=== PATIENT | male | born 1965 | race Two or more races ===

== ENCOUNTER 2018-02-04 00:38 | Emergency (ER) | payer OTHER ==
[~2018-02-04] VITALS: Ht 170.2 cm; Wt 93.0 kg
[2018-02-04] MEDS ORDERED: cefTRIAXone SOD 1,000 MG VL IM ONE (06:00)
[2018-02-04] MEDS ORDERED: IPRATROPIUM BROM 0.5 MG/2.5ML INH SOL NEB ONE (06:00)
[2018-02-04] MEDS ORDERED: methylPREDNISolone SOD SUCC 125 MG/2 ML VL IM ONE (06:00)
[2018-02-04] MEDS ORDERED: ALBUTEROL SULF 2.5 MG/0.5ML(0.5%) NEB SOLN NEB ONE (06:00)
[2018-02-04 06:32] VITALS: BP 141/96
== END 2018-02-04 06:29 ==
LOC: EEVIPCON 00:38 → ER 00:38
DX: J40 Bronchitis, not specified as acute or chronic (principal)
CPT/HCPCS: 71046; 94640; 96372; 99284; J0696; J2930; J7611; J7644

== ENCOUNTER 2018-02-25 16:49 | Inpatient (IN) | payer OTHER ==
[~2018-02-25] VITALS: Ht 170.2 cm; Wt 71.9 kg
[2018-02-25] MEDS ORDERED: ACETAMINOPHEN 325 MG TAB PO ONE (18:00)
[2018-02-25] MEDS ORDERED: ATEN-60 PO (18:36)
[2018-02-25] MEDS ORDERED: HCTZ25T GT (18:36)
[2018-02-25] MEDS ORDERED: DIVA500T4 PO (18:36)
[2018-02-25] MEDS ORDERED: ASPI-231 PO (18:36)
[2018-02-25] MEDS ORDERED: IBUP800T24 PO (18:36)
[2018-02-25] MEDS ORDERED: OMEP20TA PO (18:36)
[2018-02-25] MEDS ORDERED: MIRT30TA PO (18:36)
[2018-02-25] MEDS ORDERED: ATOR20TA PO (18:36)
[2018-02-25] MEDS ORDERED: LEVO88TA4 PO (18:36)
[2018-02-25] MEDS ORDERED: LISI-646 PO (18:36)
[2018-02-25] MEDS ORDERED: METF-370 PO (18:36)
[2018-02-25] MEDS ORDERED: DULO60CA PO (18:36)
[2018-02-25] MEDS ORDERED: ALBUAER3 IN (18:36)
[2018-02-25 18:39] LABS: Basophils # (auto) 0 uL; Basophils % (auto) 0.6 % (0.0-2.0); Eosinophils # (auto) 0.1 uL; Eosinophils % (auto) 0.9 % (0.0-7.0); Hematocrit 41.2 % (41.0-53.0); Lymphocytes # (auto) 2.2 uL; Mean Corpuscular Hemoglobin 28.9 pg (28.0-32.0); Mean Corpuscular Hgb Conc. 33.9 g/dL (32.0-36.0); Mean Corpuscular Volume 85.3 fL (80.0-100.0); Monocytes # (auto) 0.5 uL; Monocytes % (auto) 6.1 % (0.0-12.0); Neutrophils # (auto) 5.7 uL; Neutrophils % (auto) 66.4 % (37.0-80.0); Nucleated Red Blood Cells % 0.1 %; Platelet Count (auto) 306 10^3/uL (140-450); Red Blood Cells 4.83 10^6/uL (4.5-5.90); Red Cell Distribution Width 13.2 % (11.8-14.3); White Blood Cell 8.5 10^3/uL (4.4-10.8)
[2018-02-25 18:53] LABS: Albumin 4.1 g/dL (3.4-5.0); BUN/Creatinine Ratio 11.5; Calcium 8.5 mg/dL (8.5-10.1); Potassium 3.8 mmol/L (3.5-5.1)
[2018-02-25 18:55] LABS: Bilirubin, Total 0.4 mg/dL (0.2-1.0); Total Protein 7.6 g/dL (6.4-8.2)
[2018-02-25 18:58] LABS: Phenytoin (Dilantin) 4.3 ug/mL (10-20)
[2018-02-25] MEDS ORDERED: PHENYTOIN IV DILANTIN 500 MG in SODIUM CHL 0.9% 100 ML IV ONE (19:30)
[2018-02-25] MEDS ORDERED: PHENYTOIN SODIUM 100 MG CAP PO ONE (19:30)
[2018-02-25] MEDS: SODIUM CHLOR 0.9% PF (SALINE LOCK) 10ML VIAL/SYR IV SCH (22:19)
[2018-02-25] MEDS: MIRTAZAPINE 30 MG TAB PO SCH (22:23)
[2018-02-25 23:10] VITALS: BP 139/79
[2018-02-26 05:21] VITALS: BP 123/78
[2018-02-26] MEDS: SODIUM CHLOR 0.9% PF (SALINE LOCK) 10ML VIAL/SYR IV SCH ×3 (05:24→22:00)
[2018-02-26] MEDS: IBUPROFEN 800 MG TAB PO PRN ×3 (06:51→22:03)
[2018-02-26 09:00] VITALS: BP 125/89
[2018-02-26] MEDS: metFORMIN HYDROCHLORIDE 500 MG TAB PO SCH ×2 (09:02→18:20)
[2018-02-26] MEDS: ALBUTEROL SULF 2.5 MG/0.5ML(0.5%) NEB SOLN NEB PRN ×3 (09:48→23:51)
[2018-02-26] MEDS: MOMETASONE 220 MCG BC SCH (10:00)
[2018-02-26] MEDS: LEVOTHYROXINE SODIUM 100 MCG TAB PO SCH (10:05)
[2018-02-26] MEDS: DULoxetine HCL 30 MG CAP PO SCH (10:05)
[2018-02-26] MEDS: PANTOPRAZOLE 40 MG TAB PO SCH (10:06)
[2018-02-26] MEDS: ASPirin-EC 81 mg tab PO SCH (10:06)
[2018-02-26] MEDS: LISINOPRIL 10 MG TAB PO SCH (10:07)
[2018-02-26] MEDS: PHENYTOIN SODIUM 100 MG CAP PO SCH (10:07)
[2018-02-26] MEDS: ATORVASTATIN 20 MG TAB PO SCH (10:08)
[2018-02-26] MEDS: ATENOLOL 25 MG TAB PO SCH (10:09)
[2018-02-26] MEDS: ENOXAPARIN SOD 40 MG/0.4 ML SYRINGE SC SCH (10:10)
[2018-02-26] MEDS: HCTZ 25 MG TAB PO SCH (10:16)
[2018-02-26 11:01] VITALS: BP 125/89
[2018-02-26 13:00] VITALS: BP 148/91
[2018-02-26 17:02] VITALS: BP 127/74
[2018-02-26] MEDS: MIRTAZAPINE 30 MG TAB PO SCH (22:02)
[2018-02-26 22:06] VITALS: BP 142/76
[2018-02-27 05:00] VITALS: BP 137/66
[2018-02-27] MEDS: SODIUM CHLOR 0.9% PF (SALINE LOCK) 10ML VIAL/SYR IV SCH (06:43)
[2018-02-27 09:00] VITALS: BP 140/98
[2018-02-27] MEDS ORDERED: DIVA1TAB58 PO (09:16)
[2018-02-27] MEDS: ALBUTEROL SULF 2.5 MG/0.5ML(0.5%) NEB SOLN NEB PRN (10:00)
[2018-02-27] MEDS: ATORVASTATIN 20 MG TAB PO SCH (10:25)
[2018-02-27] MEDS: PHENYTOIN SODIUM 100 MG CAP PO SCH (10:26)
[2018-02-27] MEDS: PANTOPRAZOLE 40 MG TAB PO SCH (10:26)
[2018-02-27] MEDS: ATENOLOL 25 MG TAB PO SCH (10:27)
[2018-02-27] MEDS: LEVOTHYROXINE SODIUM 100 MCG TAB PO SCH (10:27)
[2018-02-27] MEDS: HCTZ 25 MG TAB PO SCH (10:27)
[2018-02-27] MEDS: DULoxetine HCL 30 MG CAP PO SCH (10:28)
[2018-02-27] MEDS: ASPirin-EC 81 mg tab PO SCH (10:28)
[2018-02-27] MEDS: LISINOPRIL 10 MG TAB PO SCH (10:29)
[2018-02-27] MEDS: ENOXAPARIN SOD 40 MG/0.4 ML SYRINGE SC SCH (10:29)
[2018-02-27] MEDS: metFORMIN HYDROCHLORIDE 500 MG TAB PO SCH (10:31)
[2018-02-27] MEDS: MOMETASONE 220 MCG BC SCH (10:34)
== END 2018-02-27 13:05 | DRG 101 ==
LOC: EEVIPCON 16:54 → ER 16:54 → OVERFLOW 20:50 → EEVIPCON 20:50 → EAST 22:24
PROVIDERS: ADMIT Internal Medicine; ATTEND Internal Medicine
DX: R56.9 Unspecified convulsions (principal); S42.032A Displaced fracture of lateral end of left clavicle, initial encounter for closed fracture; E03.9 Hypothyroidism, unspecified; E11.9 Type 2 diabetes mellitus without complications; E78.00 Pure hypercholesterolemia, unspecified; F17.210 Nicotine dependence, cigarettes, uncomplicated; I10 Essential (primary) hypertension; J45.909 Unspecified asthma, uncomplicated; K21.9 Gastro-esophageal reflux disease without esophagitis; M19.022 Primary osteoarthritis, left elbow; W18.39XA Other fall on same level, initial encounter; Z82.49 Family history of ischemic heart disease and other diseases of the circulatory system; Z83.3 Family history of diabetes mellitus; Y93.89 Activity, other specified; Y92.89 Other specified places as the place of occurrence of the external cause; Y99.8 Other external cause status; S42.032S Displaced fracture of lateral end of left clavicle, sequela
CPT/HCPCS: 36415; 73030; 73080; 73220; 80053; 80164; 80185; 82962; 84443; 85025; 94640; 94761; 96365; G0378